=== PATIENT | male | born 1970 | race Caucasian/White ===

== ENCOUNTER 2016-06-16 08:05 | Emergency (ER) | payer MEDICAID ==
[~2016-06-16] VITALS: Ht 177.8 cm; Wt 81.0 kg
[2016-06-16] MEDS ORDERED: ACETAMINOPHEN WITH CODEINE 300/30MG TABLET PO ONE (09:30)
[2016-06-16] MEDS ORDERED: METHOCARBAMOL 500MG TABLET PO ONE (09:30)
[2016-06-16 11:28] VITALS: BP 141/72
== END 2016-06-16 11:56 | disposition home or self-care (01) ==
LOC: ER 08:13
DX: S16.1XXA Strain of muscle, fascia and tendon at neck level, initial encounter (principal); S39.012A Strain of muscle, fascia and tendon of lower back, initial encounter; S20.212A Contusion of left front wall of thorax, initial encounter; V19.9XXA Pedal cyclist (driver) (passenger) injured in unspecified traffic accident, initial encounter; Y93.55 Activity, bike riding; Y99.8 Other external cause status; Y92.89 Other specified places as the place of occurrence of the external cause
CPT/HCPCS: 71101; 72040; 72070; 72100; 99284